=== PATIENT | male | born 1985 | race Caucasian/White ===

== ENCOUNTER 2021-08-15 08:19 | Outpatient (CLI) | payer OTHER ==
[~2021-08-15] VITALS: Ht 182.9 cm; Wt 82.6 kg
== END 2021-08-17 09:01 | disposition home or self-care (01) ==
LOC: PREOP 08:19
PROVIDERS: ATTEND Internal Medicine
DX: Z01.818 Encounter for other preprocedural examination (principal)

== ENCOUNTER 2021-08-19 09:57 | Day surgery (SDC) | payer OTHER ==
--- NOTE | 2021-08-16 08:43 | HISTORY AND PHYSICAL ---
DATE OF SERVICE: 08/19/2021 COLONOSCOPY HISTORY AND PHYSICAL HISTORY OF PRESENT ILLNESS: The patient is a 36-year-old white male referred by Dr. Calderón for diagnostic colonoscopy. He reports a several year history of intermittent left lower quadrant abdominal pain that has been getting worse with increase in diarrhea. He has not noted any blood but does have urgency. He has not had any previous GI workup. He believes that he has probably lost 5 to 10 pounds over the past six months, has not been trying. He reports that there is some improvement after the passage of stool. He denies fecal incontinence or melena. He does not have nocturnal stool. FAMILY HISTORY: He denies any family history for GI tract malignancy or inflammatory bowel disease that he is aware of. PAST SURGICAL HISTORY: He reports no past surgeries. PAST MEDICAL HISTORY: Noncontributory. He is taking no medication. SOCIAL HISTORY: He works as a conductor for [employer] and reports no past smoking or alcohol history. REVIEW OF SYSTEMS: CONSTITUTIONAL: Denies night sweats, chills, fever. Reported 5-qu-78-pound weight loss over the past several months. GASTROINTESTINAL: As noted in the HPI. PULMONARY: Denies cough, wheezing or shortness of breath. CARDIOVASCULAR: Denies orthopnea, PND, pedal edema or chest pain. PHYSICAL EXAMINATION: GENERAL: Reveals a white male, appeared to be in no acute distress. Weight 182 pounds. HEENT: Unremarkable. Sclerae nonicteric. CHEST: Clear to auscultation. CARDIOVASCULAR: Reveals regular rate and rhythm without murmur, S3 or S4. ABDOMEN: Soft, supple without mass or organomegaly. Left lower quadrant pain to palpation with some fullness is noted. No bruits are noted. Bowel sounds are positive. EXTREMITIES: Reveal no cyanosis, clubbing or edema. ASSESSMENT AND PLAN: The patient is being set up for diagnostic colonoscopy due to left lower quadrant abdominal pain with diarrhea. Reported weight loss and abnormal physical exam as noted above. Prep instructions were given, and questions were answered. The patient reports that he can only get off on Fridays with no other available days. He rescheduled this office visit on three occasions, so I am going to be getting him set up to come in this Sunday, which is the only day he is willing to have the procedure done. For this reason it is being set up at [facility]. I thank you for the referral of this pleasant gentleman. Job ID: [id number] DocumentID: [id number] Dictated Date: 08/11/2021 17:01:00 Lining Vamper Date: 08/11/2021 17:37:17 Dictated By: GALLO QUEZADA MD MTDD
[~2021-08-19] VITALS: Ht 183 cm; Wt 82.6 kg
[2021-08-19] VITALS (8 sets, daily range): BP systolic 84–127; BP diastolic 46–83
[2021-08-19] MEDS ORDERED: LACTATED RINGERS 1,000 ML IV STA (10:03)
[2021-08-19] MEDS ORDERED: LACTATED RINGERS 1,000 ML IV ONE (10:08)
--- NOTE | 2021-08-19 10:46 | Pre-Op Note & Conscious Sedat ---
Pre-Operative Progress Note H&P Reviewed The H&P was reviewed, patient examined and no changes noted. Date H&P Reviewed: Aug 19, 2021 Time H&P Reviewed: 10:46 Conscious Sedation Pre-Proced ASA Score 1 For ASA 3 and 4: Consider anesthesia and medical clearance. Also, for patients with a history of failed moderate sedation consider anesthesia. Airway Lungs Heart ASA score ASA 1: a normal healthy patient ASA 2: a patient with a mild systemic disease (mid diabetes, controlled hypertension, obesity ASA 3: a patient with a severe systemic disease that limits activity (angina, COPD, prior Myocardial infarction) ASA 4: a patient with an incapacitating disease that is a constant threat to life (CHF, renal failure) ASA 5: a moribund patient not expected to survive 24 hrs. (ruptured aneurysm) ASA 6: a declared brain- patient whose organs are being harvested. For emergent operations, add the letter E after the classification Mallampati Classification Grade 2 Sedation Plan Analgesia, Amnesia, Plan communicated to team members, Discussed options with patient/fam, Discussed risks with patient/fam The patient is an appropriate candidate to undergo the planned procedure, sedation, and anesthesia. The patient immediately re-assessed prior to indication. GALLO QUEZADA MD Aug 19, 2021 10:46
[2021-08-19] MEDS ORDERED: PROPOFOL INJECTION 50 ML IV ONE (11:04)
[2021-08-19] MEDS ORDERED: MIDAZOLAM 2 MG/2 ML (VERSED) VIAL ONE (11:04)
--- NOTE | 2021-08-19 12:30 | Anesthesia-General Post-Op ---
MAC Patient Condition Mental Status/LOC: Same as Preop Cardiovascular: Satisfactory Nausea/Vomiting: Absent Respiratory: Satisfactory Pain: Controlled Complications: Absent Post Op Complications Complications None Follow Up Care/Instructions Patient Instructions None needed. Anesthesiology Discharge Order Discharge Order Patient was doing well after the procedure, no complaints, stable vital signs, no apparent adverse anesthesia problems. No complications reported per nursing. JANET GILMAN 10, 2022 12:30
--- NOTE | 2021-08-19 22:18 | OPERATIVE REPORT ---
DATE OF SERVICE: COLONOSCOPY SUMMARY INDICATION FOR THE PROCEDURE: Left lower quadrant abdominal pain with diarrhea and weight loss. The patient was placed in the left lateral decubitus position. Prior to undergoing colonoscopy, digital rectal evaluation was performed. Anal sphincter tone was normal and the perianal reflexes intact. The prostate was normal in size and anodular on digital inspection. The colonoscope was then inserted into the rectum and under direct visualization advanced to cecum. The cecum was identified by the identification of ileocecal valve and cecal strap. Photographic documentation was obtained. Careful inspection was made as consult was withdrawn. Distal 5 cm of terminal ileum were inspected as well. Quality of the prep was good. FINDINGS: There was no evidence for internal or external hemorrhoids. The rectum, sigmoid colon, descending colon, transverse colon, hepatic flexure, ascending colon, cecum and distal terminal ileum were unremarkable to visual inspection with no evidence for neoplasia or inflammatory change. A biopsy was obtained from the rectum and submitted for histopathology. The patient did have an irritable bowel type response to air insufflation and colonic manipulation. ASSESSMENT: Likely irritable bowel syndrome. Biopsies was obtained from the rectum to evaluate for underlying microscopic colitis. As long as this is unremarkable considering that the patient's symptoms have been socially limiting for him, they were given instructions and had obtained Internet information on low FODMAP diet and also advised that they return to talk with Dr. Calderón about consideration for Xifaxan 550 mg t.i.d. for 2 weeks with expectations that it may take an week or two to see benefit and that retreatment most of the time was necessary based on symptoms as needed. I thank you for the referral of this pleasant gentleman. Job ID: [id number] DocumentID: [id number] Dictated Date: 08/19/2021 12:06:16 Ornamental Iron Worker Helper Date: 08/19/2021 22:17:45 Dictated By: GALLO QUEZADA MD
== END 2021-08-19 12:25 | disposition home or self-care (01) ==
LOC: ENDO 09:57
PROVIDERS: ATTEND Internal Medicine
DX: K63.89 Other specified diseases of intestine (principal); R19.7 Diarrhea, unspecified; R63.4 Abnormal weight loss; R10.32 Left lower quadrant pain